=== PATIENT | male | born 1955 | race African-American/Black ===

== ENCOUNTER 2024-06-18 17:14 | Emergency (ER) | payer OTHER ==
--- NOTE | 2024-06-18 18:02 | RAD REPORT ---
EXAMINATION: US RIGHT LOWER EXTREMITY VENOUS DOPPLER CLINICAL INDICATION: Pain;Swelling RIGHT TECHNIQUE: Complete bilateral duplex sonography of the RIGHT lower extremity veins was performed. The examination included compression for vein patency, color Doppler imaging and flow augmentation in response to distal compression of the distal external iliac, common femoral, femoral, popliteal, tibi al, and great and small saphenous veins. COMPARISON: No prior exam. FINDINGS: Duplex sonography testing of the veins of the RIGHT lower extremity was performed. Color flow imaging shows all veins to be compressible with [id number] color filling. Pulsatile and phasic flow is present within all lower extremity deep and superficial veins examined. IMPRESSION: There is no deep vein or superficial vein thrombosis.
[2024-06-18 18:03] LABS: Albumin 3.6 g/dL (3.4-5.0); Albumin/Globulin Ratio 1.1 (1.1-1.8); Anion Gap 9.3 mEq/L (5.0-15.0); Bilirubin Direct 0.2 mg/dL (0-0.2); Bilirubin Indirect, Calculated 0.4 mg/dL (0.2-0.8); Bilirubin Total 0.6 mg/dL (0.2-1.0); Globulin 3.2 g/dL (2.3-3.5); Potassium 3.3 mEq/L (3.5-5.1); Protein, Total 6.8 g/dL (6.4-8.2); Troponin High Sensitivity 17.5 pg/mL (<58.9)
[2024-06-18 18:04] LABS: D-Dimer 1.05 FEUug/mL (0-0.500); PT Prothrombin Time 12.5 SECONDS (10-13.0); Protime INR 1.1
[2024-06-18 18:11] LABS: Absolute Eosinophils 0.4 K/uL (0-0.5); Absolute Lymphocytes (CBC) 1.9 K/uL (0.7-4.9); Absolute Monocytes 0.6 K/uL (0.1-1.3); Absolute Neutrophil 1.7 K/uL (1.8-8.0); Basophils % 0.8 % (0-1.3); Eosinophils % 8.9 % (0-4.4); Hematocrit 35.7 % (39.6-49.0); Hemoglobin 12.1 g/dL (13.6-17.9); Lymphocytes % 39.8 % (15.3-44.8); MCH 30.8 pg (27.0-35.0); MCV 90.8 fL (80-100); MPV 9.2 fL (7.6-11.3); Monocytes % 13.9 % (3.3-12.3); Neutrophils % 36.6 % (41.7-73.7); Nucleated Red Blood Cells % 0.1 % (0-0); Platelets 176 thou/uL (152-406); RBC Red Blood Cell Count 3.93 M/uL (4.33-5.43); Red Cell Distribution Width 13.3 % (12.1-15.2)
[2024-06-18 18:15] LABS: Influenza A Ag Negative; Influenza B Ag Negative; SARS-CoV-2 Antigen Rapid Res Negative (Negative)
--- NOTE | 2024-06-18 18:24 | RAD REPORT ---
EXAMINATION: ONE VIEW CHEST XR CLINICAL INDICATION: SOB TECHNIQUE: Frontal chest projection is submitted. Examination is limited by patient positioning and t echnique. COMPARISON: No prior exam. FINDINGS: The lungs are well inflated and clear. The heart is upper limit of normal in size. No displaced fract ures identified. Cervical hardware plate. IMPRESSION: No acute intrathoracic abnormalities.
[2024-06-18] MEDS ORDERED: ALBUTEROL 2.5 MG/3 ML NEB SOL ONE (18:45)
[2024-06-18] MEDS ORDERED: METHYLPREDNISOLONE 40 MG INJ ONE (18:45)
--- NOTE | 2024-06-18 19:40 | RAD REPORT ---
EXAMINATION: CTA CHEST PE CLINICAL INDICATION: SOB TECHNIQUE: This examination was performed according to an angiographic protocol with 3D post-processi ng. This involves 3D reconstructions, MIPs, volume rendered images and/or shaded surface rendering. One or more of the following dose reduction techniques were used: Automated exposure control, adjustm ent of the mA and/or kV according to patient size, and/or iterative reconstruction. Unless otherwise specified, incidental findings do not require dedicated imaging follow-up. COMPARISON: No prior exam. FINDINGS: PULMONARY ARTERIES: Normal caliber. No evidence of pulmonary emboli to the subsegmental level. THORACIC AORTA: Normal caliber and configuration. LUNGS: No evidence of airspace or interstitial process. No nodules. PLEURA: No pleural effusion. No pneumothorax. MEDIASTINUM AND LYMPH NODES: No mediastinal mass or fluid collection. Normal size mediastinal, hilar, and axillary lymph nodes. OSSEOUS STRUCTURES AND CHEST WALL: Intact. UPPER ABDOMEN: No significant abnormalities. IMPRESSION: No evidence of pulmonary emboli to the subsegmental level.
[2024-06-18] MEDS ORDERED: POTASSIUM 25 MEQ EFFERV TAB ONE (20:07)
[2024-06-18 20:40] LABS: Sqamous Epithelial None Seen /HPF (None Seen); Urine Bacteria <20 /HPF (<20); Urine Bilirubin NEGATIVE (Negative); Urine Blood Negative (Negative); Urine Clarity Clear (Clear); Urine Color Light-Yellow (Yellow); Urine Culture Reflex Order NOT NEEDED; Urine Glucose NEGATIVE (Negative); Urine Ketones NEGATIVE (Negative); Urine Micro Reflex YN NO BILL MICROSCOPIC; Urine Nitrite NEGATIVE (Negative); Urine Protein TRACE (Negative); Urine RBC <5 /HPF (None Seen); Urine Urobilinogen Normal (Normal); Urine WBC <5 /HPF (<5)
[2024-06-18 20:43] LABS: Specific Gravity > 1.030 (1.005-1.030)
--- NOTE | 2024-06-18 21:05 | EDPHYS ---
Physician Documentation [facility] Name: Bradly Brink Age: 69 yrs Sex: Male : 1955 Arrival Date: 06/18/2024 Time: 17:14 Bed 18 Private MD: ED Physician Sunil Byers HPI: 06/18 17:25 This 69 yrs old Black Male presents to ER via EMS with complaints of General Weakness, cp Flu Symptoms. 17:25 The patient has shortness of breath at rest. cp 17:25 Onset: The symptoms/episode began/occurred gradually, and became worse today. cp 17:25 Duration: The symptoms are continuous, and are steadily getting worse. Associated signs cp and symptoms: Pertinent negatives: chest pain, productive cough. 17:25 The patient's shortness of breath is aggravated by lying down. cp 17:25 Severity of symptoms: in the emergency department the symptoms are unchanged despite cp home interventions. Historical: - Allergies: 17:21 No Known Allergies; kc6 - PMHx: 17:21 Hypertensive disorder; hyperlipidemia; peripheral neuropathy; Gastroesophageal reflux kc6 disease; - PSHx: 17:21 Arthroplasty of knee; kc6 - Immunization history:: Adult Immunizations up to date. - Infectious Disease History:: Denies. - Social history:: Smoking status: Patient denies any tobacco usage or history of. ROS: 17:30 Constitutional: Positive for body aches, chills, Negative for fever, cp 17:30 Cardiovascular: Positive for orthopnea, Negative for chest pain, cp 17:30 Respiratory: Positive for shortness of breath, Negative for cough, wheezing, 17:30 Eyes: Negative for injury, pain, redness, and discharge, cp 17:30 ENT: Negative for drainage from ear(s), ear pain, sore throat, difficulty swallowing, cp difficulty handling secretions, 17:30 Abdomen/GI: Negative for abdominal pain, vomiting, diarrhea, constipation, 17:30 Back: Negative for pain at rest, pain with movement, 17:30 Skin: Negative for rash, 17:30 Neuro: Positive for weakness, Negative for altered mental status, headache, syncope, near syncope, 17:30 All other systems are negative, Exam: 17:35 ECG was reviewed by the Attending Physician. cp 17:36 Constitutional: The patient appears in no acute distress, alert, awake, cp non-diaphoretic, non-toxic, well developed, well nourished, 17:36 Head/Face: Normocephalic, atraumatic. cp 17:36 Eyes: Periorbital structures: appear normal, Pupils: equal, round, and reactive to light and accomodation, Extraocular movements: intact throughout, Conjunctiva: normal, no exudate, no injection, Sclera: no appreciated abnormality, Lids and lashes: appear normal, bilaterally, 17:36 ENT: External ear(s): are unremarkable, Nose: is normal, Mouth: Lips: moist, Oral mucosa: moist, Posterior pharynx: Airway: no evidence of obstruction, patent, erythema, is not appreciated, exudate, is not appreciated, 17:36 Neck: ROM/movement: is normal, is supple, without pain, no range of motions limitations, no meningismus, no nuchal rigidity, 17:36 Chest/axilla: Inspection: normal, 17:36 Cardiovascular: Rate: normal, Rhythm: regular, Edema: is not appreciated, JVD: is not appreciated, 17:36 Respiratory: the patient does not display signs of respiratory distress, Respirations: labored breathing, is not present, shallow respirations, that is mild, Breath sounds: decreased breath sounds, that are mild, throughout, stridor, is not appreciated, wheezing: is not appreciated, 17:36 Abdomen/GI: Inspection: abdomen appears normal, Palpation: abdomen is soft and non-tender, in all quadrants, 17:36 Skin: no rash present. 17:36 Neuro: Orientation: no acute changes, Mentation: is normal, Cerebellar function: Romberg testing is negative, Motor: moves all fours, no focal deficits, Sensation: no obvious gross deficits, Vital Signs: 17:19 BP 119 / 75; Pulse 85; Resp 18 S; Temp 98.2(O); Pulse Ox 99% ; Weight 74.84 kg (R); kc6 Height 5 ft. 6 in. (R); Pain 8/10; 18:51 BP 131 / 82; Pulse 47; Resp 18 S; Pulse Ox 99% on R/A; kc6 19:15 BP 120 / 74; Pulse 58; Resp 18; Pulse Ox 100% ; vc1 20:10 BP 143 / 88; Pulse 66; Resp 18; Pulse Ox 99% ; vc1 21:15 BP 125 / 87; Pulse 57; Resp 16; Pulse Ox 99% ; vc1 17:19 Body Mass Index 26.63 (74.84 kg, 167.64 cm) kc6 17:19 Pain Scale: Adult kc6 MDM: 17:31 Medical Screening Exam initiated cp 18:00 Differential diagnosis: CHF exacerbation, Chronic Obstructive Pulmonary Disease cp pneumonia, pulmonary edema, Pulmonary Embolism Sepsis. 21:03 Data reviewed: vital signs, nurses notes, lab test result(s), EKG, radiologic studies, cp CT scan, plain films, ultrasound, and as a result, I will discharge patient. 21:03 I considered the following discharge prescriptions or medication management in the emergency department Medications were administered in the Emergency Department. See MAR. Independent interpretation of the following test(s) in the Emergency Department EKG: See my EKG interpretation above. Care significantly affected by the following chronic conditions: Hypertension. Counseling: I had a detailed discussion with the patient and/or guardian regarding the historical points, exam findings, and any diagnostic results supporting the discharge/admit diagnosis, lab results, radiology results, to return to the emergency department if symptoms worsen or persist or if there are any questions or concerns that arise at home. Response to treatment: the patient's symptoms have mildly improved after treatment, and as a result, I will discharge patient. 06/18 17:24 Order name: Basic Metabolic Panel; Complete Time: 18:31 cp 06/18 18:31 Interpretation: Normal except: K 3.3; CL 108. cp 06/18 17:24 Order name: CBC with Diff; Complete Time: 18:31 cp 06/18 18:31 Interpretation: Normal except: RBC 3.93; HGB 12.1; HCT 35.7; LAWSON% 36.6; MN% 13.9; cp EOSINOPHIL % 8.9; NEUT A 1.7. 06/18 17:24 Order name: D-Dimer; Complete Time: 18:31 cp 06/18 17:24 Order name: LFT's; Complete Time: 18:31 cp 06/18 17:24 Order name: Magnesium; Complete Time: 18:31 cp 06/18 17:24 Order name: NT PRO-BNP; Complete Time: 18:31 cp 06/18 17:24 Order name: PT-INR; Complete Time: 18:31 cp 06/18 17:24 Order name: Troponin HS; Complete Time: 18:31 cp 04/ 17:31 Order name: COVID-19 Ag + Flu A+B Ag; Complete Time: 18:31 cp 04/ 19:43 Order name: Urinalysis W/Microscopic; Complete Time: 21:02 cp 04/05 21:02 Interpretation: Reviewed. cp 04 20:26 Order name: Troponin High Sensitivity; Complete Time: 21:02 cp 04 17:24 Order name: XRAY Chest (1 view); Complete Time: 18:31 cp 04 17:24 Order name: US Extremity Venous Unilateral Ltd; Complete Time: 18:31 cp 06/18 18:32 Order name: CT Chest For PE Angio; Complete Time: 19:41 cp 06/18 19:42 Interpretation: Report reviewed. cp 04 17:24 Order name: Cardiac monitoring; Complete Time: 17:39 cp 06/18 17:24 Order name: EKG - Nurse/Tech; Complete Time: 17:39 cp 06/18 17:24 Order name: IV Saline Lock; Complete Time: 17:24 cp 06/18 17:24 Order name: Labs collected and sent; Complete Time: 17:39 cp 06/18 17:24 Order name: O2 Per Protocol; Complete Time: 17:24 cp 06/18 17:24 Order name: O2 Sat Monitoring; Complete Time: 17:24 cp EC:35 Rate is 53 beats/min. Rhythm is regular. MS interval is normal. QRS interval is cp prolonged at 112 msec. QT interval is normal. T waves are Inverted in leads III, aVF, aVR, V6. Interpreted by me. Reviewed by me. Administered Medications: 18:51 Drug: MethylPrednisoLONE IVP 80 mg IVP once Route: IVP; Site: right antecubital; kc6 19:10 Follow up: Response: No adverse reaction; Marked relief of symptoms vc1 18:51 Drug: Albuterol Inhalation 2.5 mg Inhalation once Route: Inhalation; kc6 20:09 Drug: Potassium PO Effervescent Tablet 50 mEq PO once; dissolve in 4 ounces of water or vc1 juice Route: PO; 21:16 Follow up: Response: No adverse reaction vc1 Disposition: 06/19 01:45 Co-signature as Attending Physician, Sunil Byers MD I agree with the assessment and timothy plan of care. Disposition Summary: 06/18/24 21:04 Discharge Ordered Notes: Location: Home cp Problem: new cp Symptoms: have improved cp Condition: Stable cp Diagnosis - Shortness of breath cp - Weakness cp Followup: cp - With: Private Physician - When: 2 - 3 days - Reason: Recheck today's complaints Discharge Instructions: - Discharge Summary Sheet cp - Shortness of Breath, Adult cp - Weakness cp - Aspirin and Your Heart cp Forms: - Medication Reconciliation Form cp - Antibiotic Education cp - Prescription Opioid Use cp - Patient Portal Instructions cp - Leadership Thank You Letter cp Prescriptions: - albuterol sulfate 90 mcg/actuation Inhalation HFA Aerosol Inhaler - inhale 1 puff INHALATION route every 4 to 6 hours as needed for shortness of cp breath; administer via ventilator; 1 unit; Refills: 0, Product Selection Permitted - Medrol (Igor) 4 mg Oral Tablets, Dose Pack - take 1 tablet ORAL route as directed - follow package instructions; 1 packet; cp Refills: 0, Product Selection Permitted Signatures: Dispatcher [employer] EDMS Sunil Byers MD MD cha Page, Corey, PA PA cp Simi Ann, RN RN vc1 Amanda Reyna RN RN kc6 Corrections: (The following items were deleted from the chart) 06/18 17:24 17:24 Extremity Venous Uni Ltd+US.RAD.BRZ ordered. EDMS EDMS 18:33 18:32 Chest For PE Angio+CT.RAD.BRZ ordered. EDMS EDMS 19:44 19:44 Urinalysis W/Microscopic+U.LAB.BRZ ordered. EDMS EDMS
--- NOTE | 2024-06-18 21:05 | ER ---
Nurse's Notes [facility] Name: Bradly Brink Age: 69 yrs Sex: Male : 1955 Arrival Date: 06/18/2024 Time: 17:14 Bed 18 Private MD: Diagnosis: Shortness of breath;Weakness Presentation: 06/18 17:19 Chief complaint: EMS states: they were toned out for generalized weakness and SOB kc6 beginning at 1530. pt also reports pain and swelling to the right knee and is s/p right knee arthroplasty. Coronavirus screen: At this time, the client does not indicate any symptoms associated with coronavirus-19. Ebola Screen: No symptoms or risks identified at this time. Initial Sepsis Screen: Does the patient meet any 2 criteria? No. Patient's initial sepsis screen is negative. Does the patient have a suspected source of infection? No. Patient's initial sepsis screen is negative. Risk Assessment: Do you want to hurt yourself or someone else? Patient reports no desire to harm self or others. Onset of symptoms was June 18, 2024. Care prior to arrival: Medication(s) given: Normal saline infusion, 500 mL, Tylenol, 1000 mg, IV initiated. 20 GA, in the right antecubital area, Glucose check: 131. 17:19 Method Of Arrival: [facility] kc6 17:19 Acuity: [facility] 3 kc6 Historical: - Allergies: 17:21 No Known Allergies; kc6 - PMHx: 17:21 Hypertensive disorder; hyperlipidemia; peripheral neuropathy; Gastroesophageal reflux kc6 disease; - PSHx: 17:21 Arthroplasty of knee; kc6 - Immunization history:: Adult Immunizations up to date. - Infectious Disease History:: Denies. - Social history:: Smoking status: Patient denies any tobacco usage or history of. Screenin:23 [facility] ED Fall Risk Assessment (Adult) History of falling in the last 3 months, kc6 including since admission No falls in past 3 months (0 pts) Confusion or Disorientation No (0 pts) Intoxicated or Sedated No (0 pts) Impaired Gait No (0 pts) Mobility Assist Device Used No (0 pt) Altered Elimination No (0 pt) Score/Fall Risk Level 0 - 2 = Low Risk Oriented to surroundings, Maintained a safe environment, Educated pt \T\ family on fall prevention, incl call for assistance when getting out of bed. Abuse screen: Denies threats or abuse. Denies injuries from another. Nutritional screening: No deficits noted. Tuberculosis screening: No symptoms or risk factors identified. Assessment: 17:23 General: Appears in no apparent distress. uncomfortable, well groomed, well developed, kc6 Behavior is calm, cooperative, appropriate for age, Reports feeling ill for 0-12 hours. Pain: Complains of pain in right knee. Neuro: Level of Consciousness is awake, alert, obeys commands, Oriented to person, place, time, situation, Appropriate for age. Cardiovascular: Denies chest pain, Capillary refill < 3 seconds. Respiratory: Reports shortness of breath Airway is patent Trachea midline Respiratory effort is even, unlabored, Respiratory pattern is regular, symmetrical. GI: No signs and/or symptoms were reported involving the gastrointestinal system. : No signs and/or symptoms were reported regarding the genitourinary system. EENT: No signs and/or symptoms were reported regarding the EENT system. Derm: No signs and/or symptoms reported regarding the dermatologic system. Skin is intact, is healthy with good turgor, Skin is pink, warm \T\ dry. Musculoskeletal: Circulation, motion, and sensation intact. Range of motion: intact in all extremities, Swelling present in right knee. 18:09 Reassessment: Patient appears in no apparent distress at this time. No changes from kc6 previously documented assessment. Patient and/or family updated on plan of care and expected duration. Pain level reassessed. Patient is alert, oriented x 3, equal unlabored respirations, skin warm/dry/pink. Patient states feeling better. 19:05 Reassessment: Patient appears in no apparent distress at this time. Patient and/or vc1 family updated on plan of care and expected duration. Pain level reassessed. Patient is alert, oriented x 3, equal unlabored respirations, skin warm/dry/pink. Patient states feeling better. Patient states symptoms have improved. General: Appears in no apparent distress. comfortable, well groomed, well developed, well nourished, Behavior is calm, cooperative, appropriate for age. Neuro: Level of Consciousness is awake, alert, obeys commands, Oriented to person, place, time, situation, Appropriate for age. Cardiovascular: Denies chest pain, Heart tones S1 S2 present Capillary refill < 3 seconds Patient's skin is warm and dry. Respiratory: Airway is patent Trachea midline Respiratory effort is even, unlabored, Respiratory pattern is regular, symmetrical, Breath sounds are clear Denies shortness of breath at rest. GI: No deficits noted. No signs and/or symptoms were reported involving the gastrointestinal system. : No deficits noted. No signs and/or symptoms were reported regarding the genitourinary system. EENT: No deficits noted. No signs and/or symptoms were reported regarding the EENT system. Derm: Skin is intact, is healthy with good turgor, Skin is dry, Skin is normal, Skin temperature is warm. Musculoskeletal: Circulation, motion, and sensation intact. Range of motion: intact in all extremities, Swelling present in right knee. 20:00 Reassessment: Patient appears in no apparent distress at this time. No changes from vc1 previously documented assessment. Patient and/or family updated on plan of care and expected duration. Pain level reassessed. Patient is alert, oriented x 3, equal unlabored respirations, skin warm/dry/pink. 21:15 Reassessment: Patient appears in no apparent distress at this time. No changes from vc1 previously documented assessment. Patient and/or family updated on plan of care and expected duration. Pain level reassessed. Patient is alert, oriented x 3, equal unlabored respirations, skin warm/dry/pink. Vital Signs: 17:19 BP 119 / 75; Pulse 85; Resp 18 S; Temp 98.2(O); Pulse Ox 99% ; Weight 74.84 kg (R); kc6 Height 5 ft. 6 in. (R); Pain 8/10; 18:51 BP 131 / 82; Pulse 47; Resp 18 S; Pulse Ox 99% on R/A; kc6 19:15 BP 120 / 74; Pulse 58; Resp 18; Pulse Ox 100% ; vc1 20:10 BP 143 / 88; Pulse 66; Resp 18; Pulse Ox 99% ; vc1 21:15 BP 125 / 87; Pulse 57; Resp 16; Pulse Ox 99% ; vc1 17:19 Body Mass Index 26.63 (74.84 kg, 167.64 cm) [facility] 17:19 Pain Scale: Adult [facility] ED Course: 17:19 Patient arrived in ED. [facility] 17:21 Sunil Moss PA is PHCP. cp 17:21 Inocencia Gray MD is Attending Physician. cp 17:21 Triage completed. kc6 17:21 Arm band placed on. kc6 17:22 Patient has correct armband on for positive identification. Bed in low position. Call kc6 light in reach. Side rails up X2. Pulse ox on. NIBP on. Door closed. Noise minimized. Lights dimmed. Warm blanket given. Pillow given. Verbal reassurance given. 17:22 Maintain EMS IV. Dressing intact. Good blood return noted. Site clean \T\ dry. Gauge \T\ obi 6 site: 20G RAC. Flushed with 10 mL NS. Patient maintains SpO2 saturation greater than 95% on room air. 17:24 Amanda Reyna RN is Primary Nurse. kc6 17:39 Initial lab(s) drawn, by me, sent to lab. EKG done, by ED staff, reviewed by Sunil [email or web address] YEYO. 18:01 US Extremity Venous Unilateral Ltd In Process Unspecified. EDMS 18:21 XRAY Chest (1 view) In Process Unspecified. EDMS 19:00 Report received from DAYAN Patel. vc1 19:29 Provided Education on: CT. vc1 19:32 CT Chest For PE Angio In Process Unspecified. EDMS 20:02 Sunil Byers MD is Attending Physician. cp 21:15 No provider procedures requiring assistance completed. IV discontinued, intact, vc1 bleeding controlled, No redness/swelling at site. Pressure dressing applied. Administered Medications: 18:51 Drug: MethylPrednisoLONE IVP 80 mg IVP once Route: IVP; Site: right antecubital; kc6 19:10 Follow up: Response: No adverse reaction; Marked relief of symptoms vc1 18:51 Drug: Albuterol Inhalation 2.5 mg Inhalation once Route: Inhalation; kc6 20:09 Drug: Potassium PO Effervescent Tablet 50 mEq PO once; dissolve in 4 ounces of water or vc1 juice Route: PO; 21:16 Follow up: Response: No adverse reaction vc1 Medication: 19:29 VIS not applicable for this client. vc1 Outcome: 21:04 Discharge ordered by . cp 21:[address] [facility] [place] [facility] by central sterile technician vc1 21:16 Condition: stable 21:16 Discharge instructions given to patient, Instructed on discharge instructions, follow up and referral plans. medication usage, Demonstrated understanding of instructions, follow-up care, medications, Prescriptions given X 2, 21:16 Patient left the ED. vc1 Signatures: Dispatcher [employer] EDMS Sunil Moss PA PA cp Calcote, Vanessa RN RN vc1 Amanda Reyna RN RN kc6
[2024-06-18 21:21] VITALS: TEMP 98.2
[2024-06-18 21:25] VITALS: O2SAT 99
[2024-06-18 21:26] VITALS: BP 125/87
--- NOTE | 2024-06-20 11:32 | EKG ---
Test Date: 2024-06-18 Test Time: 17:28:29 Specialized Language Instructor: FELICIA MEASUREMENT RESULTS: Intervals: Rate: 53 WA: 166 QRSD: 112 QT: 450 QTc: 422 [place]: P: 56 WA: 166 QRS: -51 T: -19 INTERPRETIVE STATEMENTS: Sinus bradycardia Right bundle branch block Left anterior fascicular block Bifascicular block Abnormal ECG No previous ECG available for comparison Electronically Signed On 06-20-24 11:29:15 CDT by Saroj Lovelace
== END 2024-06-18 21:16 | disposition home or self-care (01) ==
LOC: ER 17:14
DX: R06.02 Shortness of breath (principal); R53.1 Weakness; I10 Essential (primary) hypertension; Z11.52 Encounter for screening for COVID-19
CPT/HCPCS: 85025; 81001; 80048; 36415; 83735; 85610; 85379; 80076; 84484 ×2; 83880; 71275; 71045; 93971; 87428; Q9967; J7613; J2919; 93005; 96374; 99285

== ENCOUNTER 2024-11-05 12:31 | Emergency (ER) | payer OTHER ==
--- OUTSIDE RECORDS SUMMARY | 2024-11-05 12:33 | XMS REPORT | Continuity of Care Document ---
Author Name Unknown Address [address] [place] [address] [address] [place], [place] [id number] [place] [address] [address] [facility] [address] [place] [address] Care Team Providers Care University Controller Name Role Phone FRANCIS FRY Attending Clinician Unavailab le Encounters Start Date/Time End Date/Time Encounter Type Admission Type Attending Clinicians Care Facility Care Department Encounter ID Source 2020-01-11 09:01:00 2020-01-11 23:59:00 Outpatient FRANCIS FRY [facility] [id number] [facility]
--- NOTE | 2024-11-05 12:55 | EDPHYS ---
Physician Documentation [facility] Name: Bradly Brink Age: 69 yrs Sex: Male : 1955 Arrival Date: 11/05/2024 Time: 12:31 Bed IW1 Private MD: ED Physician Joseph Ruff HPI: 11/05 13:05 This 69 yrs old Black Male presents to ER via Ambulatory with complaints of Rash. dr5 13:05 The rash is located on the right arm and left arm. Onset: The symptoms/episode dr5 began/occurred 2 day(s) ago. Patient is a 69-year-old male with a history of hypertension coming in with rash to both arms that started 2 days ago. Patient reports he was running around his nephew who is 4 years old a couple days ago. Patient reports rash is itchy and has not been taking thing for it yet.. Historical: - Allergies: 13:07 No Known Allergies; dr5 - PMHx: 13:07 Gastroesophageal reflux disease; Hyperlipidemia; Hypertensive disorder; PERIPHERAL dr5 NEUROPATHY; - PSHx: 13:07 Arthroplasty of knee; dr5 13:07 cervical fusion; aa5 - Immunization history:: Adult Immunizations unknown. - Infectious Disease History:: Denies. - Social history:: Smoking status: Reported history of juuling and/or vaping. ROS: 13:07 Constitutional: as per hpi dr5 Exam: 13:07 Constitutional: This is a well developed, well nourished patient who is awake, alert, dr5 and in no acute distress. Head/Face: Normocephalic, atraumatic. Eyes: Pupils equal round and reactive to light, extra-ocular motions intact. Lids and lashes normal. Conjunctiva and sclera are non-icteric and not injected. Cornea within normal limits. Periorbital areas with no swelling, redness, or edema. Neck: Trachea midline, no thyromegaly or masses palpated, and no cervical lymphadenopathy. Supple, full range of motion without nuchal rigidity, or vertebral point tenderness. No Meningismus. Chest/axilla: Normal chest wall appearance and motion. Nontender with no deformity. No lesions are appreciated. Cardiovascular: Regular rate and rhythm with a normal S1 and S2. Normal PMI, no JVD. No pulse deficits. Respiratory: Lungs have equal breath sounds bilaterally, clear to auscultation. No rales, rhonchi or wheezes noted. No increased work of breathing, no retractions or nasal flaring. Back: No spinal tenderness. No costovertebral tenderness. Full range of motion. Skin: Warm, dry with normal turgor. Normal color with no rashes, no lesions, and no evidence of cellulitis. Macular papular rash noted to bilateral arms with honey crusting and central clearing noted to both arms. MS/ Extremity: Pulses equal, no cyanosis. Neurovascular intact. Full, normal range of motion. Neuro: Awake and alert, GCS 15, oriented to person, place, time, and situation. Cranial nerves II-XII grossly intact. Motor strength 5/5 in all extremities. Sensory grossly intact. Cerebellar exam normal. Normal gait. Vital Signs: 12:46 BP 147 / 95; Pulse 56; Resp 16 S; Temp 98(O); Pulse Ox 100% on R/A; Weight 74.84 kg aa5 (R); Height 5 ft. 6 in. (R); 12:46 Body Mass Index 26.63 (74.84 kg, 167.64 cm) aa5 MDM: 12:35 Medical Screening Exam initiated dr5 13:07 Differential diagnosis: impetigo, varicella, allergic reaction. Data reviewed: vital dr5 signs, nurses notes. I considered the following discharge prescriptions or medication management in the emergency department I discussed and recommended Over The Counter medications. Care significantly affected by the following chronic conditions: GERD, peripheral neuropathy, hyperlipidemia, hypertension. Care significantly affected by the following Social Determinants of Health: Poor access to healthcare and/or lack of insurance, Poor access to transportation, Problems related to employment. Counseling: I had a detailed discussion with the patient and/or guardian regarding the historical points, exam findings, and any diagnostic results supporting the discharge/admit diagnosis, the presence of at least one elevated blood pressure reading (>120/80) during this emergency department visit, the need for outpatient follow up, for definitive care, a stores despatch hand, a family practitioner, to return to the emergency department if symptoms worsen or persist or if there are any questions or concerns that arise at home. ED course: Will cover patient for impetigo as well as possible bacterial infection to bilateral arms. All questions answered. Recommend patient follow with dermatology as needed. Strict ER precautions given.. Administered Medications: No medications were administered Disposition: 16:14 Co-signature as Attending Physician, Joseph Ruff MD I reviewed the patient's care rn provided by the Advanced Practice Provider and agree with the diagnosis and treatment plan. Disposition Summary: 11/05/24 12:55 Discharge Ordered Notes: Location: Home dr5 Condition: Stable dr5 Diagnosis - Rash and other nonspecific skin eruption dr5 Followup: dr5 - With: Emergency Department - When: As needed - Reason: Worsening of condition Followup: dr5 - With: Private Physician - When: 1 - 2 days - Reason: Recheck today's complaints, Continuance of care, Re-evaluation by your physician Discharge Instructions: - Discharge Summary Sheet dr5 - Rash, Adult dr5 - Impetigo, Adult dr5 Forms: - Medication Reconciliation Form dr5 - Antibiotic Education dr5 - Patient Portal Instructions dr5 - Leadership Thank You Letter dr5 Prescriptions: - mupirocin 2 % Topical ointment - apply 1 application TOPICAL route 2 times per day for 7 days; 1 application; dr5 Refills: 0, Product Selection Permitted - Cephalexin 500 mg Oral Capsule - take 1 capsule ORAL route every 12 hours for 10 days; 20 capsule; Refills: 0, dr5 Product Selection Permitted Signatures: Joseph Ruff MD MD rn Calderon, Audri, RN RN aa5 Dallin Morales, FLAVOR EXTRACTOR-C FLAVOR EXTRACTOR-Cdr5
--- NOTE | 2024-11-06 13:09 | ER ---
Nurse's Notes [facility] Name: Bradly Brink Age: 69 yrs Sex: Male : 1955 Arrival Date: 11/05/2024 Time: 12:31 Bed IW1 Private MD: Diagnosis: Rash and other nonspecific skin eruption Presentation: 11/05 12:46 Chief complaint: Patient states: bumps on both arms x 2 days. aa5 12:46 Coronavirus screen: At this time, the client does not indicate any symptoms associated aa5 with coronavirus-19. Ebola Screen: Patient denies travel to an Ebola-affected area in the 21 days before illness onset. Initial Sepsis Screen: Does the patient meet any 2 criteria? No. Patient's initial sepsis screen is negative. Does the patient have a suspected source of infection? No. Patient's initial sepsis screen is negative. Risk Assessment: Do you want to hurt yourself or someone else? Patient reports no desire to harm self or others. Onset of symptoms was 2024. 12:46 Method Of Arrival: Ambulatory aa5 12:46 Acuity: CUCO 5 aa5 Historical: - Allergies: 13:07 No Known Allergies; dr5 - PMHx: 13:07 Gastroesophageal reflux disease; Hyperlipidemia; Hypertensive disorder; PERIPHERAL dr5 NEUROPATHY; - PSHx: 13:07 Arthroplasty of knee; dr5 13:07 cervical fusion; aa5 - Immunization history:: Adult Immunizations unknown. - Infectious Disease History:: Denies. - Social history:: Smoking status: Reported history of juuling and/or vaping. Vital Signs: 12:46 BP 147 / 95; Pulse 56; Resp 16 S; Temp 98(O); Pulse Ox 100% on R/A; Weight 74.84 kg aa5 (R); Height 5 ft. 6 in. (R); 12:46 Body Mass Index 26.63 (74.84 kg, 167.64 cm) aa5 ED Course: 12:35 Patient arrived in ED. ts1 12:35 Dallin Morales [facility]-C [facility] dr5 12:35 Joseph Ruff MD is Attending Physician. dr5 12:46 Arm band placed on. aa5 14:29 Triage completed. aa5 Administered Medications: No medications were administered Outcome: 12:55 Discharge ordered by . dr5 13:05 Discharged to home ambulatory, aa5 13:05 Condition: stable 13:05 Discharge instructions given to patient, Instructed on discharge instructions, follow up and referral plans. medication usage, Demonstrated understanding of instructions, follow-up care, medications, Prescriptions given X 2, 13:09 Patient left the ED. aa5 Signatures: Diamante Carrasquillo RN RN aa5 Shi Fox, KILLIAN PAS ts1 Dallin Morales, ASSOCIATE PROFESSOR OF SURGERY-C ASSOCIATE PROFESSOR OF SURGERY-[facility] [id number]
== END 2024-11-05 13:09 | disposition home or self-care (01) ==
LOC: ER 12:31
DX: R21 Rash and other nonspecific skin eruption (principal)
CPT/HCPCS: 99283